=== PATIENT | male | born 1960 | race Asian ===

== ENCOUNTER 2016-10-03 19:29 | Emergency (ER) | payer OTHER ==
--- NOTE | 2016-10-03 20:02 | UC ---
Gil Ortez Alok, scribed for Jude Tyson MD on 10/03/16 at 1952 . Hypertension HPI - HPI Summary HPI Summary: 56M presents to the [facility] for high BP. 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 Pt also noted facial numbness/tingling earlier today. Pt states that he had an episode of high BP at 148/100 a few weeks ago and was recommended a low-sodium diet. Pt denies SOB, ABARCA or CP. Pt takes no medications and has had no prior dx of HTN. - History of Current Complaint Chief Complaint: UCGeneralIllness Stated Complaint: HIGH BLOOD PRESSURE Time Seen by Provider: 10/03/16 19:41 Hx Obtained From: Patient Onset/Duration: Lasting Days, Still Present Timing: Constant Aggravating Factor(s): Nothing Alleviating Factor(s): Nothing Associated Signs And Symptoms: Positive: Numbness, Tingling, Dizziness. Negative: Chest Pain, Headaches, SOB - Allergies/Home Medications Allergies/Adverse Reactions: Allergies Allergy/AdvReac Type Severity Reaction Status Date / Time No Known Allergies Allergy Verified 10/03/16 19:35 PMH/Surg Hx/FS Hx/Imm Hx - Surgical History Surgical History: None - Family History Known Family History: Positive: Hypertension - Social History Occupation: Employed Full-time Alcohol Use: None Substance Use Type: None Smoking Status (MU): Never Smoked Tobacco Review of Systems Constitutional: Negative Respiratory: Negative Cardiovascular: Other - HTN Neurological: Numbness, Other - Dizziness All Other Systems Reviewed And Are Negative: Yes Physical Exam Triage Information Reviewed: Yes Appearance: Well-Appearing, No Pain Distress Vital Signs: Initial Vital Signs Temp 97.9 F 10/03/16 19:34 Pulse 60 10/03/16 19:34 Resp 18 10/03/16 19:34 BP 177/100 10/03/16 19:34 Pulse Ox 97 10/03/16 19:34 Vital Signs Reviewed: Yes Eyes: Positive: Other: - EOMI, SHERICE ENT Exam: Normal Neck: Positive: Supple, Nontender Respiratory: Positive: Lungs clear, Normal breath sounds Cardiovascular: Positive: RRR Abdomen Description: Positive: Nontender, Soft Bowel Sounds: Positive: Present Musculoskeletal Exam: Normal Musculoskeletal: Positive: Strength Intact, ROM Intact Neurological Exam: Normal Neurological: Positive: Other: - A&Ox3, Sensory/Motor intact Psychological: Positive: Other: - affect/mood appropriate Skin: Positive: Other - warm, dry, color reflects adequate perfusion Hypertension Course/Dx - Course Course Of Treatment: Pt medications reviewed this visit. PATIENT REQUESTS HTN RX. HE IS LEAVING [place] TOMORROW, HE WILL TRAVEL TO [facility], THEN [place], THEN BACK HOME TO [facility] IN 8-9 DAYS. WILL CHECK CBC AND CMP TO ENSURE GOOD KIDNEY AND LIVER FUNCTION. RX LISINIPRIL 10MG PO QD #30. PATIENT WILL NEED PHONE CALL IF LAB WORK IS ABNORMAL AND DETERMINE IF THE LISINOPRIL CAN BE CONTINUED. HE WILL F/U WITH HIS HOME PHYSICIAN. - Differential Dx/Diagnosis Provider Diagnoses: HYPERTENSION Discharge - Discharge Plan Condition: Stable Disposition: HOME Prescriptions: Lisinopril TAB* [Prinivil TAB 10 MG*] 10 mg PO DAILY #30 tab Patient Education Materials: Hypertension (ED) Referrals: [facility] [place] [facility] REFERRAL [Outside] Additional Instructions: FOLLOW UP WITH YOUR DOCTOR. GO TO THE EMERGENCY DEPARTMENT FOR ANY WORSENING OF YOUR CONDITION OR QUESTIONS OR CONCERNS. The documentation as recorded by the Gil chang Alok accurately reflects the service I personally performed and the decisions made by me, Jude Tyson MD.
[2016-10-04 12:06] LABS: Hematocrit 50 % (42-52); Hemoglobin 16.7 g/dl (14.0-18.0); Mean Corpuscular HGB Conc 34 g/dl (31-36); Mean Corpuscular Hemoglobin 28 pg (27-31); Mean Corpuscular Volume 84 fL (80-94); Mean Platelet Volume 8 um3 (7.4-10.4); Red Blood Count 5.95 10^6/ul (4.0-5.4); Red Cell Distribution Width 14 % (10.5-15); White Blood Count 7.7 10^3/ul (3.5-10.8)
[2016-10-04 12:20] LABS: Albumin 4.1 g/dL (3.2-5.2); BUN/Creatinine Ratio 25.4 (8-20); Calcium 9.3 mg/dL (8.6-10.3); EGFR African American 168.2 (>60); EGFR Non-African American 130.8 (>60); Globulin 2.6 g/dL (2-4); Potassium 4.3 mmol/L (3.5-5.0); Total Bilirubin 0.7 mg/dL (0.2-1.0); Total Protein 6.7 g/dL (6.4-8.9)
== END 2016-10-03 20:25 | disposition home or self-care (01) ==
LOC: UCEAST 19:29
DX: I10 Essential (primary) hypertension (principal); R42 Dizziness and giddiness
CPT/HCPCS: 36415; 80053; 85025; 99202; G0463

== ENCOUNTER 2019-06-03 16:30 | Emergency (ER) | payer OTHER ==
--- NOTE | 2019-06-03 19:40 | ED ---
Adult Trauma - HPI Summary HPI Summary: The patient is a 58 y/o male presenting to [facility] accompanied by friends with a chief complaint of fall this afternoon around 1600. He reports that his shoes got locked together, causing his lower extremities to bend, and he fell onto the left side. He is now experiencing pain on the right side of the body in the lateral ribs, RUE, and the mid to low back. He denies any head injury, LOC, neck pain, or painful respirations. Pain does not increase with movement of the shoulders. 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 Symptoms currently rated 5/10 in severity. PMHx: HTN (not medicated). Nonsmoker, no EtOH , no substance use. Medications reviewed. Allergies noted. - History of Current Complaint Chief Complaint: EDFall Stated Complaint: FALL PER PT Time Seen by Provider: 06/03/19 19:30 Hx Obtained From: Patient Mechanism of Injury: Fall Loss of Consciousness: no loss of consciousness Onset/Duration: Started Hours Ago - 1600 Onset of Pain: Immediate Onset Severity: Moderate Current Severity: Moderate Pain Intensity: 5 Pain Scale Used: 0-10 Numeric Location: Back - mid to low, Extremities - RUE, Other - right lateral ribs Aggravating Factor(s): Nothing Alleviating Factor(s): Nothing Associated Signs & Symptoms: Positive: Other: - head injury, neck pain. Negative: Loss of Consciousness, Painful Respirations - Allergy/Home Medications Allergies/Adverse Reactions: Allergies Allergy/AdvReac Type Severity Reaction Status Date / Time No Known Allergies Allergy Verified 06/03/19 16:36 PMH/Surg Hx/FS Hx/Imm Hx Endocrine/Hematology History: Denies: Hx Diabetes Cardiovascular History: Reports: Hx Hypertension - never diagnosed Denies: Hx Hypercholesterolemia - Surgical History Surgical History: None Surgery Procedure, Year, and Place: none Infectious Disease History: No Infectious Disease History: Reports: Traveled Outside the [place] in Last 30 Days - [place] - Family History Known Family History: Positive: Hypertension - Social History Alcohol Use: None Hx Substance Use: No Substance Use Type: Reports: None Hx Tobacco Use: No Smoking Status (MU): Never Smoked Tobacco Review of Systems Negative: Other - painful respirations Positive: Myalgia - mid to low back, right lateral ribs, RUE. Negative: Other - neck pain Neurological/Mental Status: Other - Negative: head injury, LOC All Other Systems Reviewed And Are Negative: Yes Physical Exam - Summary Physical Exam Summary: Appearance: Well-appearing, Well-nourished, lying in bed comfortable Skin: Warm, dry, no obvious rash Eyes: sclera anicteric, no conjunctival pallor ENT: mucous membranes moist Neck: deferred Respiratory: No signs of respiratory distress Cardiovascular: Appears well perfused, pulses are nml Abdomen: deferred Musculoskeletal: Diffuse tenderness to palpation of the right lateral chest wall with no point tenderness, No crepitus, No bruising, Moving all 4 extremities without obvious discomfort Neurological: Awake and alert, mentation is normal, speech is fluent and appropriate Psychiatric: affect is normal, does not appear anxious or depressed Triage Information Reviewed: Yes Vital Signs On Initial Exam: Initial Vitals Temp Pulse Resp BP Pulse Ox 98.3 F 67 18 190/124 99 06/03/19 16:32 06/03/19 16:32 06/03/19 16:32 06/03/19 16:32 06/03/19 16:32 Vital Signs Reviewed: Yes Procedures - Sedation Patient Received Moderate/Deep Sedation with Procedure: No Diagnostics - Vital Signs Vital Signs Temp Pulse Resp BP Pulse Ox 06/03/19 18:46 98 F 71 18 193/125 97 06/03/19 16:32 98.3 F 67 18 190/124 99 - Laboratory Lab Statement: Any lab studies that have been ordered have been reviewed, and results considered in the medical decision making process. - Radiology R Ribs w/ Chest XR Radiology Interpretation Completed By: ED Physician Summary of Radiographic Findings: No evidence of fracture. ED physician has reviewed and interpreted this report. Pending official read. Re-Evaluation - Re-Evaluation First Eval Re-Evaluation Time: 20:05 Comment: We discussed results and plan for discharge. Adult Trauma Course/Dx - Course Course Of Treatment: 58 y/o male presenting with sustaining a mechanical fall this afternoon at 1600 where he landed on his left side but is experiencing pain in the RUE, right lateral ribs, and mid to low back. Denies any LOC, head injury, painful respirations, or neck pain. Physical exam reveals diffuse tenderness to palpation of the right lateral chest wall with no point tenderness , no crepitus, and no bruising. Right Ribs w/ Chest XR is negative for fracture. Patient is safe for discharge. All results discussed. Patient understands and agrees with plan. - Diagnoses Provider Diagnoses: Strain of chest wall Discharge ED - Sign-Out/Discharge Documenting (check all that apply): Patient Departure - Patient will be discharged home. - Discharge Plan Condition: Good Disposition: HOME Patient Education Materials: Chest Wall Pain (ED) Referrals: [facility] [Outside] - If Needed Additional Instructions: I do not see any sign of significant injury to the chest wall on the films. Likely the pain is coming from strained muscles in the chest wall around the ribcage. Soft tissue pain like this typically gets worse the next day, so keep some otc pain medication like tylenol or motrin on hand. - Billing Disposition and Condition Condition: GOOD Disposition: Home - Attestation Statements Document Initiated by Kitty: Yes Documenting Scribe: Mary Rivers Provider For Whom Kitty is Documenting (Include Credential): Dr. Zach Diamond MD Scribe Attestation: Mary Ortez scribed for Dr. Zach Diamond MD on 06/04/19 at 0414. Scribe Documentation Reviewed: Yes Provider Attestation: The documentation as recorded by the Mary chang accurately reflects the service I personally performed and the decisions made by me, Dr. Zach Diamond MD Status of Scriblaureen Document: Viewed
[2019-06-03] MEDS ORDERED: Lidocaine PATCH 5%* 1 PATCH TRANSDERM ONE (20:09)
[2019-06-03] MEDS ORDERED: Ibuprofen TAB* 400 MG PO ONE (20:09)
[2019-06-03 20:36] VITALS: BP 178/111
[2019-06-03] MEDS ORDERED: Lidocaine Patch REMOVE* 1 NOTE MISC SCH (21:00)
== END 2019-06-03 20:24 | disposition home or self-care (01) ==
LOC: ED 16:30
DX: S29.011A Strain of muscle and tendon of front wall of thorax, initial encounter (principal); M54.5 Low back pain; W18.30XA Fall on same level, unspecified, initial encounter; Y92.9 Unspecified place or not applicable
CPT/HCPCS: 99282; A9270-GY